=== PATIENT | male | born 1990 | race Caucasian/White ===

== ENCOUNTER 2021-05-02 09:37 | Emergency (ER) | payer SELFPAY ==
[~2021-05-02] VITALS: Ht 177.8 cm; Wt 90.7 kg
[2021-05-02 09:51] VITALS: BP 155/100
== END 2021-05-02 10:15 | disposition home or self-care (01) ==
LOC: ER 09:38
DX: F41.0 Panic disorder [episodic paroxysmal anxiety] (principal); R06.02 Shortness of breath; R20.0 Anesthesia of skin; F17.200 Nicotine dependence, unspecified, uncomplicated; Z72.89 Other problems related to lifestyle
CPT/HCPCS: 99281

== ENCOUNTER 2022-05-09 11:17 | Emergency (ER) | payer MEDICAID ==
[~2022-05-09] VITALS: Ht 177.8 cm; Wt 90.0 kg
[2022-05-09 12:04] VITALS: BP 155/101
[2022-05-09] MEDS ORDERED: HYDR-3965 PO (12:59)
== END 2022-05-09 13:20 | disposition home or self-care (01) ==
LOC: ER 11:17
DX: S93.402A Sprain of unspecified ligament of left ankle, initial encounter (principal); M85.862 Other specified disorders of bone density and structure, left lower leg; Z72.89 Other problems related to lifestyle; Z79.899 Other long term (current) drug therapy; X50.1XXA Overexertion from prolonged static or awkward postures, initial encounter; Y93.89 Activity, other specified; Y92.89 Other specified places as the place of occurrence of the external cause; Y99.8 Other external cause status
CPT/HCPCS: 73610; 99283; L4360

== ENCOUNTER 2023-01-19 03:50 | Emergency (ER) | payer MEDICAID ==
[~2023-01-19] VITALS: Ht 177.8 cm; Wt 93.2 kg
[2023-01-19 05:35] LABS: BASOPHILS % (AUTO) 0.4 % (0-1); EOSINOPHILS # (AUTO) 0.1 X10'3 (0-0.9); EOSINOPHILS % (AUTO) 0.9 % (0-6); HEMATOCRIT 44.2 % (42.0-52.0); HEMOGLOBIN 14.8 g/dl (14.0-17.9); LYMPHOCYTES % (AUTO) 15.2 % (21-51); MEAN CORPUSCULAR HEMOGLOBIN 31.5 PG (27.0-31.0); MEAN CORPUSCULAR HGB CONC 33.5 g/dL (33.0-36.5); MEAN CORPUSCULAR VOLUME 94.1 FL (78-98); MEAN PLATELET VOLUME 7.3 FL (7.4-10.4); MONOCYTES # (AUTO) 1.1 X10'3 (0-0.9); MONOCYTES % (AUTO) 8.4 % (2-12); NEUTROPHILS # (AUTO) 9.8 X10'3 (1.8-7.7); NEUTROPHILS % (AUTO) 75.1 % (42-75); PLATELET COUNT 243 X10'3 (140-440); RED BLOOD COUNT 4.69 X10'6 (4.70-6.10); RED CELL DISTRIBUTION WIDTH 12.7 % (11.5-14.5)
[2023-01-19 05:51] LABS: ALANINE AMINOTRANSFERASE 98 U/L (12-78); ALBUMIN/GLOBULIN RATIO 1.2 (1.1-1.5); ALKALINE PHOSPHATASE 75 IU/L (46-116); ANION GAP 8 (8-16); ASPARTATE AMINO TRANSFERASE 40 U/L (10-37); BILIRUBIN,TOTAL 0.5 MG/DL (0.1-1.0); BLOOD UREA NITROGEN 12 MG/DL (7-18); BUN/CREATININE RATIO 13.3 (5.4-32.0); CALCIUM 9.4 MG/DL (8.5-10.1); CHLORIDE 103 MMOL/L (99-107); GLUCOSE 124 MG/DL (70-104); LIPASE 101 U/L (73-393); SODIUM 137 MMOL/L (135-145); TOTAL CARBON DIOXIDE 26.3 MMOL/L (24-32); TOTAL PROTEIN 7.4 G/DL (6.4-8.2); eGFR > 90 ML/MIN
[2023-01-19 07:36] VITALS: BP 142/101
[2023-01-19] MEDS ORDERED: ketorolac tromethamine 15mg/ml inj. IV ONE (08:05)
[2023-01-19] MEDS ORDERED: normal saline 1000ML IV soln IVB ONE (08:05)
[2023-01-19] MEDS ORDERED: ondansetron/PF 4mg/2ml inj IV ONE (08:05)
[2023-01-19] MEDS ORDERED: morphine 4 MG/ML inj SYRINge IV ONE ×2 (08:05→10:25)
[2023-01-19 08:30] LABS: CLARITY,URINE CLEAR (Clear); COLOR,URINE STRAW (Yellow); GLUCOSE, URINE NEGATIVE (Neg); KETONES,URINE NEGATIVE (Neg); LEUKOCYTE ESTERASE ,URINE NEGATIVE (Neg); NITRITES, URINE NEGATIVE (Neg); OCCULT BLOOD,URINE NEGATIVE (Neg); PROTEIN,URINE NEGATIVE (Neg); UROBILINOGEN,URINE 0.2 E.U/dL (0.2-1.0)
[2023-01-19 08:45] LABS: UA COLLECTION TYPE CLN CATCH MIDSTREAM
[2023-01-19] MEDS ORDERED: HYDR-3965 PO (10:30)
== END 2023-01-19 11:03 | disposition home or self-care (01) ==
LOC: ER 03:51
DX: R10.12 Left upper quadrant pain (principal)
CPT/HCPCS: 36415; 71045; 76770; 80053; 81003; 83690; 85025; 96374; 96375; 96376; 99285; J1885; J2270; J2405; J7030

== ENCOUNTER 2025-07-04 17:35 | Emergency (ER) | payer MEDICAID ==
[~2025-07-04] VITALS: Ht 177.8 cm; Wt 95.3 kg
--- NOTE | 2025-07-04 17:45 | ELECTROCARDIOGRAPH REPORT ---
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
--- NOTE | 2025-07-04 18:16 | RADIOLOGY REPORT ---
CLINICAL HISTORY: CP TECHNIQUE: Single view of the chest was obtained. COMPARISON: CHEST,SINGLE VIEW on DOS: 01/19/23 FINDINGS: The heart size and pulmonary vasculature are normal. The lungs are clear. IMPRESSION: NO ACUTE CARDIOPULMONARY PROCESS.
[2025-07-04 18:28] LABS: MEAN PLATELET VOLUME 7.4 FL (7.4-10.4); RED CELL DISTRIBUTION WIDTH 13.5 % (11.5-14.5)
[2025-07-04 18:52] LABS: CREATININE 0.90 MG/DL (0.60-1.10); PRO BRAIN NATRIURETIC PEPTIDE < 30 PG/ML (0-125); TOTAL CARBON DIOXIDE 25.6 MMOL/L (24-32); eCRCL 122 ML/MIN; eGFR > 90 ML/MIN
--- NOTE | 2025-07-04 21:24 | Physician Documentation ---
History of Present Illness ~ Chief Complaint: Chest Pain Stated Complaint: CHEST PAIN Time Seen by MD: 19:31 Primary Medical Doctor: None Mode of Arrival: POV, Ambulatory HPI Patient is a 34-year-old male that presents to the emergency department for evaluation of chest pain. Patient reports that he feels pressure in his chest has slight shortness of breath. Patient reports that he has anxiety and he has been under a lot of stress at work. Patient denies any palpitations or for ra diating chest pain. Patient denies any dizziness or syncope. Medication Reconciliation Allergies: Coded Allergies: No Known Allergies (Unverified , 07/05/25) Scheduled Amlodipine* (Norvasc*), 1 TABLET PO DAILY Scheduled PRN Diazepam (Valium), 1 TAB PO Q12H PRN PRN for anxiety Past Medical History Past Medical History: No Pertinent History Past Surgical History: noncontributory Alcohol Use: Occasionally Drug Use: none Lives In: Home Occupation: employed Review of Systems ROS As stated above in the HPI, otherwise all systems are reviewed and negative. Physical Exam Vital Signs: Temperature: 97.3, Source: Oral, Heart Rate: 66, Respiratory Rate: 16, BP: 176/105, Pulse Oximetry: 97, Weight: 95.300 Oxygen Flow Rate: 0 Physical Exam VITALS: Reviewed and as above. GENERAL: Alert, no apparent distress. HEENT: Normocephalic, atraumatic, PERRL, EOMI, dry mucosa, no erythema RESPIRATORY: Lungs clear, normal breath sounds, no respiratory distress. CHEST: No accessory muscle use, no retractions CV: Regular rate, rhythm, no edema, no murmur, No: JVD, hypertension noted GI: Soft, non-tender, bowels sounds present, no rebound, guarding, or rigidity BACK: No CVA tenderness, or swelling MUSCULOSKELETAL No deformities, no edema SKIN: Warm and dry, no rash NEURO: Oriented x4, No motor or sensory deficit PSYCH: Normal mood and affect, no agitation Progress Results/Orders Results/Orders Completed Orders - RAYA HONGP Clonidine Tablet (Catapres Tablet) (07/04/25 20:25) Electrocardiogram (07/04/25 ) Vital Signs 07/04/25 07/04/25 07/04/25 07/04/25 17:57 19:44 19:44 21:35 Temp 97.3 Pulse 74 66 79 Resp 18 16 16 16 B/P (MAP) 167/118 176/105 (128) 166/102 (123) Pulse Ox 97 97 O2 Flow Rate 0 0 07/04/25 07/04/25 07/04/25 07/05/25 21:49 22:16 22:37 00:01 Temp 98.6 Pulse 76 78 71 70 Resp 16 16 16 18 B/P (MAP) 160/107 (124) 158/112 (127) 152/101 (118) 148/99 Pulse Ox 99 Laboratory Tests Test 07/04/25 17:49 07/04/25 19:47 07/04/25 20:55 White Blood Count 7.6 Red Blood Count 5.14 Hemoglobin 16.3 Hematocrit 47.1 Mean Corpuscular Volume 91.7 Mean Corpuscular Hemoglobin 31.6 H Mean Corpuscular Hemoglobin Concent 34.5 Red Cell Distribution Width 13.5 Platelet Count 271 Mean Platelet Volume 7.4 Neutrophils (%) (Auto) 51.0 Lymphocytes (%) (Auto) 39.5 Monocytes (%) (Auto) 8.1 Eosinophils (%) (Auto) 1.0 Basophils (%) (Auto) 0.4 Neutrophils # (Auto) 3.9 Lymphocytes # (Auto) 3.0 Monocytes # (Auto) 0.6 Eosinophils # (Auto) 0.1 Basophils # (Auto) 0.0 CBC Comment Sodium Level 138 Potassium Level 3.6 Chloride Level 101 Carbon Dioxide Level 25.6 Anion Gap 11 Blood Urea Nitrogen 11 Creatinine 0.90 Estimated GFR/1.73 m2 > 90 BUN/Creatinine Ratio 12.2 Glucose Level 96 Calcium Level 9.6 Troponin I High Sensitivity 7 7 7 Pro-B-Type Natriuretic Peptide < 30 Albumin 4.3 Chemistry Comments Troponin I High Sens Percent Delta 0 0 Troponin I Hi Sens Absolute Change 0 0 Medical Decision Making Findings Exam without evidence of volume overload so doubt heart failure. EKG without signs of active ischemia. Given the timing of pain to ER presentation, single troponin negative was so doubt NSTEMI. Presentation not consistent with acute PE pneumothorax (not visualized on chest xr), thoracic aortic dissection, pericarditis, tamponade, pneumonia (no infectious symptoms, clear chest xr), myocarditis (no recent illness, neg trop). so plan to discharge patient home with PMD follow up for hypertension and anxiety. Patient will return to the emergency department for any worsening of his current symptoms or any additional concerning symptoms that we discussed here today i.e. increased hypertension headache numbness tingling chest pain shortness of breath lightheaded dizziness syncope or any other concerning symptoms. Patient reports that he has a blood pressure monitor at home. Has been asked to check his blood pressure a minimum of twice a day at around the same time of day every day. He is being prescribed blood pressure medication and a week's worth of anti anxiety medication until he can follow up with the primary care provider at [facility]. This patient presents with symptoms consistent with acute anxiety addition to medical problems listed above. Patient will follow up with primary care provider regarding history of anxiety and interest in being started on antianxiety medication. Return to the emergency department with any worsening of his current symptoms or any additional concerning symptoms that we discussed here today. Differential Dx:Considerations: Include: angina, aortic dissection, chest wall pain, cholelithiasis, CHF, costochondritis, esophageal reflux/spasm, gastritis, herpes zoster, myocardial infarction, pericarditis, pleuritis, pancreatitis, pneumonia, pneumothorax, pulmonary embolus, other Departure Disposition: 01 HOME / SELF CARE / HOMELESS Impression: Primary Impression: Chest pain Additional Impressions: Chest wall pain History of anxiety Stress at home Stress at work Hypertension Condition: Stable Discharge Instructions: Generalized Anxiety Disorder, Adult, Hypertension, Adult, [id number], Managing Stress, Adult, Nonspecific Chest Pain, Adult Additional Instructions: Exam without evidence of volume overload so doubt heart failure. EKG without signs of active ischemia. Given the timing of pain to ER presentation, single troponin negative was so doubt NSTEMI. Presentation not consistent with acute PE pneumothorax (not visualized on chest xr), thoracic aortic dissection, pericarditis, tamponade, pneumonia (no infectious symptoms, clear chest xr), myocarditis (no recent illness, neg trop). so plan to discharge patient home with PMD follow up for hypertension and anxiety. Patient will return to the emergency department for any worsening of his current symptoms or any additional concerning symptoms that we discussed here today i.e. increased hypertension headache numbness tingling chest pain shortness of breath lightheaded dizziness syncope or any other concerning symptoms. Patient reports that he has a blood pressure monitor at home. Has been asked to check his blood pressure a minimum of twice a day at around the same time of day every day. He is being prescribed blood pressure medication and a week's worth of anti anxiety medication until he can follow up with the primary care provider at [facility]. This patient presents with symptoms consistent with acute anxiety addition to medical problems listed above. Patient will follow up with primary care provider regarding history of anxiety and interest in being started on antianxiety medication. Return to the emergency department with any worsening of his current symptoms or any additional concerning symptoms that we discussed here today. Referrals: NO PRIMARY CARE PROVIDER (PCP) Prescriptions Diazepam (Valium) 5 Mg Tablet 1 TAB PO Q12H PRN PRN for anxiety for 10 Days, #20 TAB 0 Refills Prov: RAYA HONG 07/04/25 Amlodipine* (Norvasc*) 2.5 Mg Tablet 1 TABLET PO DAILY for 30 Days, #30 TAB Prov: RAYA HONG 07/04/25 Education Educated: Patient Educated regarding: diagnosis, treatment, need for follow up Signature Scribe Signature: A Attestation: Scribed for Raya Hong by NANDO Stewart . 07/04/25 23:52 RAYA HONG Jul 04, 2025 21:24
[2025-07-04] MEDS ORDERED: DIAZ5TAB PO (23:50)
[2025-07-04] MEDS ORDERED: AMLO2.5T2 PO (23:50)
[2025-07-05 00:01] VITALS: BP 148/99; PULSE 70; RESP 18; TEMP 98.6; O2SAT 99
--- NOTE | 2025-07-05 08:20 | ELECTROCARDIOGRAPH REPORT ---
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
[2025-07-05] MEDS ORDERED: LORA-269 PO (23:41)
[2025-07-05] MEDS ORDERED: AMLO10TA5 PO (23:41)
== END 2025-07-05 00:03 | disposition home or self-care (01) ==
LOC: ER 17:36
DX: R07.89 Other chest pain (principal); I10 Essential (primary) hypertension; F41.9 Anxiety disorder, unspecified; F43.9 Reaction to severe stress, unspecified; Z79.899 Other long term (current) drug therapy; Z72.89 Other problems related to lifestyle
CPT/HCPCS: 36415; 71045; 80048; 83880; 84484; 85025; 93005; 99285

== ENCOUNTER 2025-07-05 20:47 | Emergency (ER) | payer MEDICAID ==
[~2025-07-05] VITALS: Ht 177.8 cm; Wt 90.6 kg
[~2025-07-05 20:47] MED LIST: AMLO2.5T2 PO; DIAZ5TAB PO
[2025-07-05 21:08] LABS: MEAN PLATELET VOLUME 7.2 FL (7.4-10.4); RED CELL DISTRIBUTION WIDTH 13.2 % (11.5-14.5)
[2025-07-05 21:25] LABS: CREATININE 0.88 MG/DL (0.60-1.10); TOTAL CARBON DIOXIDE 26.3 MMOL/L (24-32); eCRCL 124 ML/MIN; eGFR > 90 ML/MIN
--- NOTE | 2025-07-05 21:31 | RADIOLOGY REPORT ---
CHEST RADIOGRAPH Indication: pressure Technique: Single frontal view of the chest was obtained Comparison: DI CHEST,SINGLE VIEW on DOS: 07/04/25, CHEST,SINGLE VIEW on DOS: 01/19/23 FINDINGS: Lines and Tubes: None Lungs: No focal consolidation. Pleura: No effusion. No pneumothorax. Cardiomediastinal contours: Unremarkable Bones: No acute osseous abnormality. IMPRESSION: No acute cardiopulmonary disease.
[2025-07-05 21:32] LABS: PRO BRAIN NATRIURETIC PEPTIDE < 30 PG/ML (0-125)
[2025-07-05 21:37] VITALS: TEMP 96.3
[2025-07-05] MEDS: diazepam inj 5 MG/ML inj. IV ONE (22:16)
--- NOTE | 2025-07-05 22:56 | RADIOLOGY REPORT ---
STUDY: CT CTA CHEST PE W/ IV CONTRAST Indication: SOB, chest discomfort TECHNIQUE: Axial images were obtained through the chest with reformat images post intravenous contr ast. Reconstruction processing of 3D angiographic images of the vessels was obtained. 80 mL of omnipaque 35mg/dl was administered. DLP: 866 FINDINGS: PULMONARY ARTERIES: Limited evaluation due to motion artifact and contrast bolus/timing. Evaluation of segmental and subsegmental branches are incomplete due to this limitation. No acute pul monary emboli within the main or lobar branches. LUNGS AND PLEURA: No focal consolidations. No definite pulmonary edema. No mass or nodule. No pleural effusion. No pneu mothorax. MEDIASTINUM: No lymphadenopathy or mass. The heart shows no acute findings. The aorta shows no acute findings. The pulmonary trunk, and branches of the vessels in the mediastinu m are within normal limits. SUPRACLAVICULAR AND AXILLARY: No abnormalities seen in these regions. No mass or significant lymphadenopathy. UPPER ABDOMEN: Hepatic steatosis and hepatomegaly. BONES AND SOFT TISSUES: The ribs are unremarkable. The visualized spine shows no significant acute findings. No focal bony mass lesions noted. The subcutaneous soft tissues are unremarkable. IMPRESSION: Limited evaluation due to motion artifact and contrast bolus/timing. Evaluation of segmental and subsegmental branches are incomplete due to this limitation. No acute pul monary emboli within the main or lobar branches. No focal consolidations.
--- NOTE | 2025-07-05 23:32 | Physician Documentation ---
History of Present Illness ~ Chief Complaint: Dizziness Stated Complaint: CP SEEN LAST NIGHT Time Seen by MD: 23:28 Primary Medical Doctor: None HPI Patient is a 34-year-old male that reports to the emergency department for re- evaluation of hypertension and chest pain. Patient reports that he has been taking his blood pressure at home blood pressure continues to be elevated c ontinues to have intermittent chest pain and occasional dizziness with headache intermittent shortness of breath. Patient reports he has a history of anxiety in addition to recent stress at work. No other complaints at this time. Medication Reconciliation Allergies: Coded Allergies: No Known Allergies (Unverified , 07/05/25) Scheduled Amlodipine* (Norvasc*), 1 TABLET PO DAILY Scheduled PRN Diazepam (Valium), 1 TAB PO Q12H PRN PRN for anxiety Past Medical History Past Medical History: No Pertinent History Past Surgical History: noncontributory Alcohol Use: Occasionally Drug Use: none Lives In: Home Occupation: employed Review of Systems ROS As stated above in the HPI, otherwise all systems are reviewed and negative. Physical Exam Vital Signs: Temperature: 96.3, Source: Temporal, Heart Rate: 61, Respiratory Rate: 16, BP: 140/100, Pulse Oximetry: 97, Weight: 90.600 Oxygen Flow Rate: 0 Physical Exam VITALS: Reviewed and as above. GENERAL: Alert, no apparent distress. HEENT: Normocephalic, atraumatic, PERRL, EOMI, dry mucosa, no erythema RESPIRATORY: Lungs clear, normal breath sounds, no respiratory distress. CHEST: No accessory muscle use, no retractions CV: Regular rate, rhythm, no edema, no murmur, No: JVD, hypertension noted GI: Soft, non-tender, bowels sounds present, no rebound, guarding, or rigidity BACK: No CVA tenderness, or swelling MUSCULOSKELETAL No deformities, no edema SKIN: Warm and dry, no rash NEURO: Oriented x4, No motor or sensory deficit PSYCH: Normal mood and affect, no agitation Progress Results/Orders Results/Orders Orders - RAYA HONG Chest,Single View (07/05/25 20:56) Cta Chest Pe (07/05/25 21:25) Electrocardiogram (07/05/25 ) Urinalysis, Cult If Indicated (07/05/25 21:23) Completed Orders - RAYA HONGP Cbc/Diff (07/05/25 20:56) CMP (07/05/25 20:56) PBNP (07/05/25 20:56) Chest,Single View (07/05/25 20:56) Cta Chest Pe (07/05/25 21:25) Clonidine Tablet (Catapres Tablet) (07/05/25 21:00) Diazepam Inj (Valium Inj) (07/05/25 21:45) Medications Received in ER Medications (Trade) Dose Ordered Sig/Frandy Route PRN Reason Start Time Stop Time Status Last Admin Dose Admin (Catapres tablet) 0.1 mg ONCE ONCE PO 07/05/25 21:00 07/05/25 21:01 DC 07/05/25 21:37 0.1 MG (Valium inj) 5 mg ONCE ONCE IV 07/05/25 21:45 07/05/25 21:46 DC 07/05/25 22:16 5 MG Vital Signs 07/05/25 07/05/25 07/05/25 20:57 21:37 22:55 Temp 96.3 96.3 Pulse 74 86 61 Resp 15 16 16 B/P (MAP) 199/127 175/123 (140) 140/100 (113) Pulse Ox 99 98 97 O2 Flow Rate 0 0 Laboratory Tests Test 07/05/25 20:57 White Blood Count 7.4 Red Blood Count 5.05 Hemoglobin 16.0 Hematocrit 46.7 Mean Corpuscular Volume 92.6 Mean Corpuscular Hemoglobin 31.7 H Mean Corpuscular Hemoglobin Concent 34.3 Red Cell Distribution Width 13.2 Platelet Count 264 Mean Platelet Volume 7.2 L Neutrophils (%) (Auto) 60.6 Lymphocytes (%) (Auto) 29.7 Monocytes (%) (Auto) 7.9 Eosinophils (%) (Auto) 1.4 Basophils (%) (Auto) 0.4 Neutrophils # (Auto) 4.5 Lymphocytes # (Auto) 2.2 Monocytes # (Auto) 0.6 Eosinophils # (Auto) 0.1 Basophils # (Auto) 0.0 CBC Comment Sodium Level 140 Potassium Level 3.6 Chloride Level 100 Carbon Dioxide Level 26.3 Anion Gap 14 Blood Urea Nitrogen 12 Creatinine 0.88 Estimated GFR/1.73 m2 > 90 BUN/Creatinine Ratio 13.6 Glucose Level 101 Calcium Level 9.7 Total Bilirubin 0.6 Aspartate Amino Transf (AST/SGOT) 74 H Alanine Aminotransferase (ALT/SGPT) 151 H Alkaline Phosphatase 66 Pro-B-Type Natriuretic Peptide < 30 Total Protein 8.2 Albumin 4.4 Globulin 3.8 Albumin/Globulin Ratio 1.2 Chemistry Comments Medical Decision Making Findings Exam without evidence of volume overload so doubt heart failure. EKG without signs of active ischemia. Given the timing of pain to ER presentation, single troponin negative was so doubt NSTEMI. acute PE pneumothorax ruled out with CTA , thoracic aortic dissection, pericarditis, tamponade, pneumonia (no infectious symptoms, clear chest xr), myocarditis (no recent illness, neg trop). so plan to discharge patient home with PMD follow up for hypertension and anxiety. Patient will return to the emergency department for any worsening of his current symptoms or any additional concerning symptoms that we discussed here today i.e. increased hypertension headache numbness tingling chest pain shortness of breath lightheaded dizziness syncope or any other concerning symptoms. Patient reports that he has a blood pressure monitor at home. Has been asked to check his blood pressure a minimum of twice a day at around the same time of day every day. Increase the dosage of blood pressure medication that was prescribed yesterday and a week's worth of anti anxiety medication until he can follow up with the primary care provider at [facility]. This patient presents with symptoms consistent with acute anxiety addition to medical problems listed above. Patient will follow up with primary care provider regarding history of anxiety and interest in being started on antianxiety medication. Return to the emergency department with any worsening of his current symptoms or any additional concerning symptoms that we discussed here today. Differential Dx:Considerations: Include: dehydration, Delirium Tr., DKA, encephalopathy, hypercalcemia, HHNC, hypoglycemia, hypernatremia, hyponatremia, hypoxia, postictal, closed head injury, C-spine injury, CVA, mass lesion, subarachnoid hemorrhage, drug overdose, encephalopathy, ETOH intoxication, medication toxicity, infection - meningitis, infection - sepsis, infection - UTI, heart failure, renal failure, respiratory failure, hyperthermia, hypothermia, other Departure Disposition: HOME / SELF CARE / HOMELESS Impression: Primary Impression: Dizziness Additional Impressions: Hypertension History of anxiety Anxiety Headache Discharge Instructions: Dizziness, Hypertension, Adult, Pwet-il-Prev Additional Instructions: Exam without evidence of volume overload so doubt heart failure. EKG without signs of active ischemia. Given the timing of pain to ER presentation, single troponin negative was so doubt NSTEMI. acute PE pneumothorax ruled out with CTA , thoracic aortic dissection, pericarditis, tamponade, pneumonia (no infectious symptoms, clear chest xr), myocarditis (no recent illness, neg trop). so plan to discharge patient home with PMD follow up for hypertension and anxiety. Patient will return to the emergency department for any worsening of his current symptoms or any additional concerning symptoms that we discussed here today i.e. increased hypertension headache numbness tingling chest pain shortness of breath lightheaded dizziness syncope or any other concerning symptoms. Patient reports that he has a blood pressure monitor at home. Has been asked to check his blood pressure a minimum of twice a day at around the same time of day every day. Increase the dosage of blood pressure medication that was prescribed yesterday and a week's worth of anti anxiety medication until he can follow up with the primary care provider at [facility]. This patient presents with symptoms consistent with acute anxiety addition to medical problems listed above. Patient will follow up with primary care provider regarding history of anxiety and interest in being started on antianxiety medication. Return to the emergency department with any worsening of his current symptoms or any additional concerning symptoms that we discussed here today. Referrals: NO PRIMARY CARE PROVIDER (PCP) Prescriptions Lorazepam (Ativan) 1 Mg Tablet 1 TAB PO Q12H PRN PRN for anxiety for 10 Days, #20 TAB 0 Refills Prov: RAYA HONG 07/05/25 Amlodipine Besylate (Norvasc) 10 Mg Tablet 1 TAB PO DAILY for 30 Days, #30 TAB 0 Refills Prov: RAYA HONG 07/05/25 Education Educated: Patient Educated regarding: diagnosis, treatment, need for follow up Signature Scribe Signature: A Attestation: Scribed for Raya Hong by NANDO Stewart . 07/05/25 23:43 RAYA HONG Jul 05, 2025 23:32
[2025-07-05] MEDS ORDERED: AMLO10TA5 PO (23:41)
[2025-07-05] MEDS ORDERED: LORA-269 PO (23:41)
[2025-07-05 23:47] VITALS: BP 142/100; PULSE 77; O2SAT 98
[2025-07-05 23:57] VITALS: RESP 16
--- NOTE | 2025-07-06 05:11 | ELECTROCARDIOGRAPH REPORT ---
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
== END 2025-07-05 23:59 | disposition home or self-care (01) ==
LOC: ER 20:48
DX: R51.9 Headache, unspecified (principal); R42 Dizziness and giddiness; F41.9 Anxiety disorder, unspecified; I10 Essential (primary) hypertension; Z72.89 Other problems related to lifestyle; Z79.899 Other long term (current) drug therapy
CPT/HCPCS: 36415; 71045; 71275; 80053; 83880; 85025; 93005; 96374; 99285; J3360; Q9967